=== PATIENT | male | born 1970 | race American Indian/Alaskan Native ===

== ENCOUNTER 2016-07-04 09:49 | Outpatient (CLI) | payer BC ==
--- NOTE | 2016-07-04 11:20 | XRay Report ---
Lumbar spine series, 5 views. History: Back pain. Findings: There is severe narrowing of the disc space at L5-S1 with associated anterior hypertrophic changes. The remaining vertebral body heights and disc spaces are well-maintained. Alignment is normal. Bony mineralization is normal. Impression: Severe discogenic changes at L5-S1.
== END 2016-07-04 09:50 | disposition home or self-care (01) ==
LOC: SPVIMAG 09:49
PROVIDERS: ATTEND Neurological Surgery
DX: M47.897 Other spondylosis, lumbosacral region (principal)
CPT/HCPCS: 72110